=== PATIENT | female | born 1990 | race Caucasian/White ===

== ENCOUNTER 2017-03-05 17:33 | Emergency (ER) | payer OTHER ==
[~2017-03-05] VITALS: Ht 165.1 cm; Wt 92.5 kg
[2017-03-05 18:46] VITALS: BP 124/69
--- NOTE | 2017-03-05 18:55 | NUR ---
Patient ambulated to bed 06.
[2017-03-05] MEDS ORDERED: NACL 0.9% 1,000 ML IV SCH (19:12)
--- NOTE | 2017-03-05 19:14 | NUR ---
PT C/O LOWER ABDOMINAL CRAMPING PAIN SINCE SATURDAY WITH COUGHING, 7 WKS 5 DAYS, WILL BE SEEN BY DR Leeroy HOBBS TODAY
[2017-03-05 20:45] VITALS: BP 121/65
--- NOTE | 2017-03-05 20:45 | NUR ---
Patient discharged with v/s stable. Written and verbal after care instructions given and explained. Patient alert, oriented and verbalized understanding of instructions. Ambulatory with steady gait. All questions addressed prior to discharge. ID band removed. Patient advised to follow up with PMD. Rx of DICLEGIS 10MG-10MGDELAYED RELEASE PO given. Patient educated on indication of medication including possible reaction and side effects. Opportunity to ask questions provided and answered.
== END 2017-03-05 20:45 | disposition home or self-care (01) ==
LOC: MED 17:33
DX: O98.511 Other viral diseases complicating pregnancy, first trimester (principal); B34.9 Viral infection, unspecified; Z3A.01 Less than 8 weeks gestation of pregnancy
CPT/HCPCS: 36415; 80053; 81001; 81025; 83735; 85025; 87086; 96360; 99284; J7030

== ENCOUNTER 2017-08-07 16:30 | Observation (INO) | payer OTHER ==
[~2017-08-07] VITALS: Ht 167.6 cm; Wt 96.2 kg
[2017-08-07 17:37] VITALS: BP 106/56
[2017-08-07] MEDS ORDERED: PREN-380 PO (18:02)
== END 2017-08-07 20:25 | disposition home or self-care (01) ==
LOC: MLD 16:30
PROVIDERS: ADMIT Obstetrics & Gynecology; ATTEND Obstetrics & Gynecology
DX: O26.892 Other specified pregnancy related conditions, second trimester (principal); R10.2 Pelvic and perineal pain; M25.551 Pain in right hip; M25.552 Pain in left hip; Z3A.27 27 weeks gestation of pregnancy
CPT/HCPCS: 76805; 81000; G0378; Q0092

== ENCOUNTER 2017-09-25 11:15 | Observation (INO) | payer OTHER ==
[~2017-09-25 11:15] MED LIST: PREN-380 PO
[2017-09-25 11:46] VITALS: BP 119/67
== END 2017-09-25 14:50 | disposition home or self-care (01) ==
LOC: MLD 11:15
PROVIDERS: ADMIT Obstetrics & Gynecology; ATTEND Obstetrics & Gynecology
DX: O36.8130 Decreased fetal movements, third trimester, not applicable or unspecified (principal); Z3A.34 34 weeks gestation of pregnancy
CPT/HCPCS: 76819; G0378; Q0092

== ENCOUNTER 2017-09-27 12:52 | Observation (INO) | payer OTHER ==
[~2017-09-27] VITALS: Ht 165.1 cm; Wt 99.8 kg
[2017-09-27 13:22] VITALS: BP 118/72
[2017-09-27] MEDS ORDERED: cefTRIAXone 2,000 MG in DEXTROSE 5% 100 ML IV ONE (16:00)
[2017-09-27] MEDS ORDERED: TERBUTALINE 1 MG/ML VIAL SUBQ SCH (16:00)
[2017-09-27] MEDS ORDERED: LIDOCAINE 1% 500 MG/50 ML VIAL INJ SCH (16:17)
[2017-09-27] MEDS ORDERED: TERBUTALINE 1 MG/ML VIAL SUBQ ONE (16:32)
[2017-09-27] MEDS ORDERED: LIDOCAINE 1% 50 ML ONE (16:40)
[2017-09-27] MEDS ORDERED: cefTRIAXone 2,000 MG in DEXTROSE 5% 100 ML IM ONE (16:49)
[2017-09-27 17:44] VITALS: BP 118/64
== END 2017-09-27 18:00 | disposition home or self-care (01) ==
LOC: MLD 12:52
PROVIDERS: ADMIT Obstetrics & Gynecology; ATTEND Obstetrics & Gynecology
DX: O36.8130 Decreased fetal movements, third trimester, not applicable or unspecified (principal); Z3A.34 34 weeks gestation of pregnancy
CPT/HCPCS: 76819; 81000; 96372; G0378; J0696; J2001; J3105; J7060; Q0092

== ENCOUNTER 2017-11-02 16:56 | Inpatient (IN) | payer OTHER ==
[~2017-11-02] VITALS: Ht 165.1 cm; Wt 103.4 kg
[2017-11-02] MEDS ORDERED: AMPICILLIN 2,000 MG in NACL 0.9% MINI-BAG PLUS 100 ML IV SCH (17:30)
[2017-11-02] MEDS ORDERED: OXYTOCIN 20 UNITS in LACTATED RINGERS 1,000 ML IV SCH (17:30)
[2017-11-02 17:44] VITALS: BP 128/84
[2017-11-02] MEDS ORDERED: MISOPROSTOL 25 MCG TAB ONE (18:15)
[2017-11-02] MEDS ORDERED: AMPICILLIN 2,000 MG VIAL ONE (18:15)
[2017-11-02 18:34] LABS: BASOPHILS # (AUTO) 0.1 K/uL (0.00-0.22); EOSINOPHILS # (AUTO) 0.1 K/uL (0-0.4); EOSINOPHILS % (AUTO) 0.7 % (0.0-4.0); HEMATOCRIT 37.1 % (36-48); HEMOGLOBIN 12.1 g/dL (12.0-16.0); LYMPHOCYTES # (AUTO) 1.8 K/uL (2.5-16.5); LYMPHOCYTES % (AUTO) 22.3 % (20.5-51.1); MEAN CORPUSCULAR HEMOGLOBIN 24 pg (27-31); MEAN CORPUSCULAR HGB CONC 33 g/dL (33-37); MEAN CORPUSCULAR VOLUME 73 fL (80-94); MONOCYTES # (AUTO) 0.5 K/uL (0.8-1.0); MONOCYTES % (AUTO) 5.7 % (1.7-9.3); NEUTROPHILS # (AUTO) 5.4 K/uL (1.8-7.7); NEUTROPHILS % (AUTO) 70.3 % (42.2-75.2); PLATELET COUNT (AUTO) 173 K/uL (140-450); RED BLOOD CELL COUNT(AUTO) 5.08 MIL/uL (4.20-5.40); RED CELL DISTRIBUTION WIDTH 14.8 % (11.6-13.7); WHITE BLOOD COUNT (AUTO) 7.9 K/uL (4.8-10.8)
[2017-11-02 18:34] LABS: APPEARANCE,URINE SL CLOUDY (CLEAR); BILIRUBIN,URINE NEGATIVE (NEGATIVE); BLOOD, URINE NEGATIVE (NEGATIVE); COLOR,URINE YELLOW (YELLOW); LEUKOCYTE ESTERASE ,URINE 3+ (NEGATIVE); NITRITE, URINE NEGATIVE (NEGATIVE); UGLUCOSE NEGATIVE (NEGATIVE)
[2017-11-02 18:37] LABS: RBC,URINE 3-10 (FEW) /HPF (0-5); WBC,URINE 80-100 /HPF (0-5)
[2017-11-02] MEDS: LACTATED RINGERS 1,000 ML IV SCH (18:40)
[2017-11-02 18:45] LABS: ANION GAP 14.3 (8-16); CARBON DIOXIDE 21.5 mmol/L (21-32); CREATININE 0.5 mg/dL (0.6-1.3); POTASSIUM 3.8 mmol/L (3.5-5.1)
[2017-11-02 18:51] LABS: ALBUMIN 2.7 g/dL (3.4-5.0); TOTAL BILIRUBIN 0.2 mg/dL (0.0-1.0)
[2017-11-02] MEDS ORDERED: MISOPROSTOL 25 MCG TAB VG SCH (20:00)
[2017-11-02] MEDS ORDERED: AMPICILLIN 1,000 MG VIAL ONE (22:31)
[2017-11-02] MEDS: AMPICILLIN 1,000 MG in NACL 0.9% MINI-BAG PLUS 50 ML IV SCH (22:35)
[2017-11-02] MEDS ORDERED: OXYTOCIN 20 UNITS/LR PREMIX 1,000 ML IV ONE (23:45)
[2017-11-03] MEDS: LACTATED RINGERS 1,000 ML IV SCH ×2 (00:45→05:49)
[2017-11-03] MEDS ORDERED: AMPICILLIN 1,000 MG VIAL ONE ×2 (02:30→06:50)
[2017-11-03] MEDS: AMPICILLIN 1,000 MG in NACL 0.9% MINI-BAG PLUS 50 ML IV SCH ×2 (02:33→06:54)
[2017-11-03] MEDS ORDERED: NALBUPHINE HYDROCHLORIDE 10 MG/ML VIAL ONE (07:32)
[2017-11-03] MEDS ORDERED: PROMETHAZINE 25 MG/ML VIAL ONE (07:32)
[2017-11-03] MEDS ORDERED: OXYTOCIN 10 UNITS/ML VIAL ONE (08:00)
[2017-11-03] MEDS ORDERED: OXYTOCIN 20 UNITS in LACTATED RINGERS 1,000 ML IV SCH (09:51)
[2017-11-03] MEDS ORDERED: HYDROcodone/APAP 5/325 MG 1 TAB TAB PO PRN ×2 (09:55)
[2017-11-03] MEDS ORDERED: TEMAZEPAM 15 MG CAP PO PRN (09:55)
[2017-11-03] MEDS ORDERED: SODIUM PHOSPHATE 118 ML ENEM RC PRN (09:55)
[2017-11-03] MEDS ORDERED: IBUPROFEN 800 MG TAB PO PRN (09:55)
[2017-11-03] MEDS ORDERED: METHYLERGONOVINE 0.2 MG/ML AMP IM PRN (09:55)
[2017-11-03] MEDS ORDERED: SIMETHICONE 80 MG TAB.CHEW PO PRN (09:55)
[2017-11-03 11:51] LABS: RAPID PLASMA REAGIN NON-REACTIVE (Non Reactiv)
[2017-11-03] MEDS ORDERED: BISACODYL 5 MG TABEC PO SCH (21:00)
[2017-11-04 06:24] LABS: BASOPHILS # (AUTO) 0.1 K/uL (0.00-0.22); BASOPHILS % (AUTO) 1.7 % (0.0-2.0); EOSINOPHILS # (AUTO) 0.1 K/uL (0-0.4); EOSINOPHILS % (AUTO) 0.7 % (0.0-4.0); HEMATOCRIT 33.2 % (36-48); HEMOGLOBIN 10.6 g/dL (12.0-16.0); LYMPHOCYTES # (AUTO) 2.6 K/uL (2.5-16.5); MEAN CORPUSCULAR HEMOGLOBIN 23 pg (27-31); MEAN CORPUSCULAR HGB CONC 32 g/dL (33-37); MEAN CORPUSCULAR VOLUME 74 fL (80-94); MONOCYTES # (AUTO) 0.6 K/uL (0.8-1.0); MONOCYTES % (AUTO) 6.8 % (1.7-9.3); NEUTROPHILS # (AUTO) 4.8 K/uL (1.8-7.7); NEUTROPHILS % (AUTO) 59.8 % (42.2-75.2); PLATELET COUNT (AUTO) 170 K/uL (140-450); RED BLOOD CELL COUNT(AUTO) 4.52 MIL/uL (4.20-5.40); RED CELL DISTRIBUTION WIDTH 15.4 % (11.6-13.7); WHITE BLOOD COUNT (AUTO) 8.2 K/uL (4.8-10.8)
--- NOTE | 2017-11-04 09:01 | NUR ---
PATIENT HAS BEEN SCREENED AND CATEGORIZED LOW NUTRITION RISK. PATIENT WILL BE SEEN WITHIN 7 DAYS OF ADMISSION. 11/08/[address]
[2017-11-05] MEDS ORDERED: IBUP-1801 PO (10:55)
== END 2017-11-05 17:50 | disposition home or self-care (01) | DRG 560 ==
LOC: MLD 16:56 → MFCC 11-03 11:15
PROVIDERS: ADMIT Obstetrics & Gynecology; ATTEND Obstetrics & Gynecology
PROC: 10E0XZZ Delivery of Products of Conception, External Approach (ICD-10-PCS; principal; 2017-11-02)
PROC: 10907ZC Drainage of Amniotic Fluid, Therapeutic from Products of Conception, Via Natural or Artificial Opening (ICD-10-PCS; 2017-11-02)
PROC: 3E0234Z Introduction of Serum, Toxoid and Vaccine into Muscle, Percutaneous Approach (ICD-10-PCS; 2017-11-04)
DX: O99.824 Streptococcus B carrier state complicating childbirth (principal); O48.0 Post-term pregnancy; Z3A.40 40 weeks gestation of pregnancy; Z37.0 Single live birth; Z23 Encounter for immunization
CPT/HCPCS: 36415; 59200; 59409; 80053; 81001; 85025; 86592; 86762; 86886; 86900; 86901; 87086; 90715; J0290; J2300; J2550; J2590; J7120

== ENCOUNTER 2019-10-03 09:58 | Emergency (ER) | payer OTHER ==
[~2019-10-03] VITALS: Ht 167.6 cm; Wt 88.9 kg
[~2019-10-03 09:58] MED LIST changes: +IBUP-1801 PO
[2019-10-03 10:01] VITALS: BP 148/58
--- NOTE | 2019-10-03 10:01 | NUR ---
PT AMBULATED TO BED 11
--- NOTE | 2019-10-03 10:15 | NUR ---
PATIENT PRESENTS TO ED WITH NASAL CONGESTION, PRODUCTIVE COUGH, EAR PAIN, H/A, SORE THROAT, DIARRHEA, CHILLS, VOMITING X 3 DAYS. PT HAS BEEN TAKING NYQUIL AND DAYQUIL, WHICH PROVIDED NO RELIEF. DENIES ABDOMINAL PAIN AND URINARY SYMPTOMS. SKIN IS FLUSHED AND WARM TO TOUCH; LUNGS CLEAR BL; HR EVEN AND REGULAR; PATIENT STATES EAR PAIN OF 4/10 AT THIS TIME; PATIENT POSITIONED FOR COMFORT; HOB ELEVATED; BEDRAILS UP X2; BED DOWN. ER MD MADE AWARE OF PT STATUS.
[2019-10-03] MEDS ORDERED: PROMETHAZINE 25 MG/ML VIAL IM ONE (10:40)
[2019-10-03] MEDS ORDERED: ALBUTEROL SULFATE/IPRATROPIU 3 ML SOL IH ONE (10:40)
[2019-10-03] MEDS ORDERED: hydrOXYzine HCL 25 MG TAB PO ONE (10:40)
[2019-10-03] MEDS ORDERED: KETOROLAC 60 MG/2 ML VIAL IM ONE (10:40)
[2019-10-03] MEDS ORDERED: ONDANSETRON 4 MG ODT PO ONE (10:40)
--- NOTE | 2019-10-03 10:53 | NUR ---
Breathing treatment administered by respiratory therapist at bedside.
[2019-10-03 10:59] LABS: APPEARANCE,URINE SL CLOUDY (CLEAR); BILIRUBIN,URINE NEGATIVE (NEGATIVE); BLOOD, URINE 1+ (NEGATIVE); COLOR,URINE YELLOW (YELLOW); LEUKOCYTE ESTERASE ,URINE NEGATIVE (NEGATIVE); NITRITE, URINE NEGATIVE (NEGATIVE); PH,URINE 6.5 (5.0-9.0); UGLUCOSE NEGATIVE (NEGATIVE)
[2019-10-03 11:23] LABS: WBC,URINE 0-5 /HPF (0-5)
--- NOTE | 2019-10-03 11:54 | NUR ---
POSITIVE FOR STELLA B
[2019-10-03 12:39] VITALS: BP 136/64
--- NOTE | 2019-10-03 12:39 | NUR ---
Patient discharged with v/s stable. Written and verbal after care instructions given and explained. Patient alert, oriented and verbalized understanding of instructions. Ambulatory with steady gait. All questions addressed prior to discharge. ID band removed. Patient advised to follow up with PMD. Rx of Tamiflu, Motrin 800mg and Promethazine DM given. Patient educated on indication of medication including possible reaction and side effects. Opportunity to ask questions provided and answered.
== END 2019-10-03 12:39 | disposition home or self-care (01) ==
LOC: MED 09:58
DX: J10.1 Influenza due to other identified influenza virus with other respiratory manifestations (principal); B34.9 Viral infection, unspecified; Z79.899 Other long term (current) drug therapy
CPT/HCPCS: 81001; 81025; 87804; 94640; 96372; 99284; J1885; J2550; J7620; Q0162